=== PATIENT | female | born 1960 ===

== ENCOUNTER 2017-04-28 20:34 | Emergency (ER) | payer MEDICARE, MEDICAID ==
[2017-04-28 20:35] VITALS: BMI 22.3
[2017-04-28 20:45] VITALS: BP 188/119; PULSE 98; TEMP 99.4; O2SAT 99
--- NOTE | 2017-04-28 21:25 | ED PDOC ---
HPI: SOB/CHF/COPD Time Seen by Provider: 04/28/17 20:46 Chief Complaint (Nursing): Shortness Of Breath Chief Complaint (Provider): shortness of breath History Per: Patient History/Exam Limitations: no limitations Onset/Duration Of Symptoms: Days (x2) Current Symptoms Are (Timing): Still Present Additional Complaint(s): Garcia Stevenson is a 56 year old female with a past medical history of Rheumatoid Arthritis and Emphysema presenting to the ED for an evaluation of shortness of breath occurring for 2 days prior to arrival. The patient reports taking Percocet, Naproxen, Xanax, Albuterol inhaler, and a Nebulizer for her symptoms, taken without relief. She also states associated spasms occurring in her right lower extremity, chest tightness, chest pain, and palpitations. She denies cough or congestion. Pt reports she is very anxious bc she takes so many pills and she does not want to be dependant on narcotics anymore. Pt reports that she tried to stop taking her percocet and Oxy's; however, felt worse. Pt contacted her Pain management physician, Dr. Tang who is gong to help her guru off medications; however, Pt feels anxious at this time PMD: David Sepulveda MD Past Medical History Reviewed: Historical Data, Nursing Documentation, Vital Signs Vital Signs: Last Vital Signs Temp 99.4 F 04/28/17 20:39 Pulse 98 H 04/28/17 20:39 Resp 23 04/28/17 22:51 BP 188/119 H 04/28/17 20:39 Pulse Ox 99 04/28/17 21:27 - Medical History PMH: Anxiety, Arthritis (back), Back Problems, Bronchitis, Emphysema, Fractures (RT ANKLE FX W/HARDWARE), Rheumatoid Arthritis Denies: Chronic Kidney Disease - Family History Family History: States: Unknown Family Hx - Social History Current smoker - smoking cessation education provided: No Ex-Smoker (has not smoked in the last 12 months): Yes - Immunization History Hx Tetanus Toxoid Vaccination: No Hx Influenza Vaccination: Yes Hx Pneumococcal Vaccination: Yes - Home Medications Home Medications: Ambulatory Orders Medication Instructions Recorded Oxycodone HCl/Acetaminophen 1 tab PO Q4 12/18/15 [Percocet 325 mg-10 mg] traMADol/Acetaminophen [Ultracet 1 tab PO TID PRN #20 tab 01/27/16 37.5/325 mg] Naproxen [Naprosyn] 500 mg PO Q12H #20 tab 03/10/16 Dicyclomine [Bentyl] 20 mg PO Q6 PRN #12 tab 08/05/16 Famotidine [Pepcid] 20 mg PO BID PRN #15 tab 08/05/16 Ondansetron [Zofran Odt] 4 mg PO Q8 PRN #10 odt 08/05/16 amLODIPine [Norvasc] 5 mg PO DAILY #30 tab 08/05/16 Alprazolam [Xanax] 0.5 mg PO HS #2 tab 04/29/17 - Allergies Allergies/Adverse Reactions: Allergies Allergy/AdvReac Type Severity Reaction Status Date / Time iodine Allergy SHORTNESS Verified 04/28/17 20:39 OF BREATH Iodine and Iodide Containing Allergy SHORTNESS Verified 04/28/17 20:39 Produc OF BREATH Review of Systems ROS Statement: Except As Marked, All Systems Reviewed And Found Negative ENT: Negative for: Nose Congestion Cardiovascular: Positive for: Chest Pain (and chest tightness), Palpitations Respiratory: Positive for: Shortness of Breath. Negative for: Cough Musculoskeletal: Positive for: Leg Pain (spasms in right lower extremity) Physical Exam - Reviewed Nursing Documentation Reviewed: Yes Vital Signs Reviewed: Yes - Physical Exam Appears: Positive for: Non-toxic, No Acute Distress Head Exam: Positive for: ATRAUMATIC, NORMOCEPHALIC Skin: Positive for: Normal Color, Warm, Dry Eye Exam: Positive for: Normal appearance, EOMI ENT: Positive for: Normal ENT Inspection, Pharynx Is (clear), TM Is/Are (normal bilaterally) Neck: Positive for: Normal, Painless ROM Cardiovascular/Chest: Positive for: Regular Rate, Rhythm, Chest Non Tender Respiratory: Positive for: Normal Breath Sounds. Negative for: Respiratory Distress Gastrointestinal/Abdominal: Positive for: Normal Exam, Soft. Negative for: Tenderness Back: Positive for: Normal Inspection Extremity: Positive for: Normal ROM. Negative for: Deformity Neurologic/Psych: Positive for: Alert, Oriented (x3). Negative for: Motor/ Sensory Deficits - Laboratory Results Result Diagrams: 04/28/17 21:15 04/28/17 22:13 - ECG O2 Sat by Pulse Oximetry: 99 (RA) Pulse Ox Interpretation: Normal Medical Decision Making Medical Decision Making: Time: 20:46 Impression: Shortness of breath Plan: * ED EKG * B-Type Natriuretic Peptide * CMP * Troponin I * CBC (with differential) * Erythrocyte Sedimentation Rate * Toradol 30 mg IVP * [RAD] Chest Two Views (PA/LAT) * Reevaluation Repeat BP: 148/88 Scribe Attestation: Documented by Dominga Whitman, acting as a scribe for Azul Leigh PA-C. Provider Scribe Attestation: All medical record entries made by the Scribe were at my direction and personally dictated by me. I have reviewed the chart and agree that the record accurately reflects my personal performance of the history, physical exam, medical decision making, and the department course for this patient. I have also personally directed, reviewed, and agree with the discharge instructions and disposition. Disposition - Clinical Impression Clinical Impression: Anxiety - Patient ED Disposition Is Patient to be Admitted: No - Disposition Disposition: Routine/Home Disposition Time: 22:00 Condition: STABLE Prescriptions: Alprazolam [Xanax] 0.5 mg PO HS #2 tab Instructions: Anxiety (ED) Forms: [employer] (Welsh)
[2017-04-28 21:41] LABS: BASO # 0.2 K/uL (0.0-0.2); BASO % 1.3 % (0.0-2.0); EOS % 0.3 % (0.0-4.0); HEMATOCRIT 43.7 % (34.0-47.0); LYMPH # 1.8 K/uL (1.0-4.3); LYMPH % 14.6 % (20.0-40.0); MEAN CELL VOLUME 91.6 fl (81.0-99.0); MEAN CORPUSCULAR HGB CONC 33.9 g/dL (33.0-37.0); MEAN PLATELET VOLUME 7.8 fl (7.2-11.7); MONO # 0.9 K/uL (0.0-0.8); MONO % 7.1 % (0.0-10.0); NEUT # 9.3 K/uL (1.8-7.0); NEUT % 76.7 % (50.0-75.0); NRBC % 0.1 % (0.0-0.0); RED CELL DISTRIBUTION WIDTH 13.8 % (11.5-14.5); WHITE BLOOD COUNT 12.1 K/uL (4.8-10.8)
[2017-04-28 22:52] VITALS: RESP 23
[2017-04-28 23:44] LABS: ALKALINE PHOSPHATASE 72 U/L (38-126); ALT/SGPT 36 U/L (9-52); AST/SGOT 32 U/L (14-36); BILIRUBIN,TOTAL 0.4 mg/dl (0.2-1.3); BLOOD UREA NITROGEN 11 mg/dl (7-17); CALCIUM 9.9 mg/dL (8.4-10.2); CARBON DIOXIDE 23 mmol/L (22-30); CHLORIDE 106 mmol/L (98-107); GFR AFRICAN-AMERICAN > 60; GLUCOSE,RANDOM 112 mg/dL (65-105); POTASSIUM 3.7 MMOL/L (3.6-5.0); SODIUM 144 mmol/l (132-148); TOTAL PROTEIN 8.4 G/DL (6.3-8.2)
[2017-04-28 23:45] LABS: ALB/GLOB RATIO 1.2 (1.0-2.1)
--- NOTE | 2017-04-29 10:53 | RAD ---
HISTORY: sob COMPARISON: Comparison made with prior chest radiograph dated 09/30/2013. TECHNIQUE: Chest PA and lateral FINDINGS: LUNGS: No focal consolidation. The interstitial markings however are somewhat increased and coarsened in appearance; rule out sequela of reactive/inflammatory airway disease or viral illness. PLEURA: No significant pleural effusion identified. No pneumothorax apparent. CARDIOVASCULAR: Normal. OSSEOUS STRUCTURES: No significant abnormalities. VISUALIZED UPPER ABDOMEN: Normal. OTHER FINDINGS: None. IMPRESSION: No focal consolidation. The interstitial markings however are somewhat increased and coarsened in appearance; rule out sequela of reactive/inflammatory airway disease or viral illness.
--- NOTE | 2017-04-29 21:13 | CARD ---
APPROVED REPORT EKG Measurement Heart [id number] <Conclusion> Normal sinus rhythm Nonspecific ST abnormality Abnormal ECG
== END 2017-04-29 01:16 | disposition home or self-care (01) ==
LOC: H.ER 20:34
DX: F41.9 Anxiety disorder, unspecified (principal); J44.9 Chronic obstructive pulmonary disease, unspecified; M06.9 Rheumatoid arthritis, unspecified
CPT/HCPCS: 71020; 80053; 83880; 84484; 85025; 85651; 93005; 96374; 99283; J1885

== ENCOUNTER 2017-11-20 10:13 | Emergency (ER) | payer MEDICARE, MEDICAID ==
[2017-11-20 10:14] VITALS: BMI 22.3
[2017-11-20 10:31] VITALS: RESP 18; TEMP 98.4
[2017-11-20] MEDS ORDERED: Sodium Chloride 0.9% 1,000 ML IV STA (11:06)
--- NOTE | 2017-11-20 11:19 | RAD ---
HISTORY: cough COMPARISON: Chest radiograph dated 04/28/2017. TECHNIQUE: Chest PA and lateral FINDINGS: LUNGS: No active pulmonary disease. PLEURA: No significant pleural effusion identified. No pneumothorax apparent. CARDIOVASCULAR: Normal. OSSEOUS STRUCTURES: Unchanged. VISUALIZED UPPER ABDOMEN: Normal. OTHER FINDINGS: None. IMPRESSION: No active disease.
[2017-11-20 11:27] LABS: BASO # 0.1 K/uL (0.0-0.2); BASO % 0.8 % (0.0-2.0); EOS % 0.1 % (0.0-4.0); HEMOGLOBIN 15.9 g/dL (12.0-16.0); LYMPH # 1.8 K/uL (1.0-4.3); MEAN CELL VOLUME 91.3 fl (81.0-99.0); MEAN CORPUSCULAR HEMOGLOBIN 31.1 pg (27.0-31.0); MEAN PLATELET VOLUME 8.7 fl (7.2-11.7); MONO # 0.6 K/uL (0.0-0.8); MONO % 4.7 % (0.0-10.0); NEUT # 11.2 K/uL (1.8-7.0); NEUT % 81.4 % (50.0-75.0); NRBC % 0.1 % (0.0-0.0); RBC 5.11 Mil/uL (3.80-5.20); RED CELL DISTRIBUTION WIDTH 14.4 % (11.5-14.5); WHITE BLOOD COUNT 13.8 K/uL (4.8-10.8)
[2017-11-20 11:40] LABS: ALB/GLOB RATIO 1.1 (1.0-2.1); ALBUMIN 4.4 g/dL (3.5-5.0); ALT/SGPT 24 U/L (9-52); AST/SGOT 22 U/L (14-36); BLOOD UREA NITROGEN 12 mg/dl (7-17); CALCIUM 9.8 mg/dL (8.4-10.2); GFR AFRICAN-AMERICAN > 60; GFR NON-AFRICAN AMERICAN > 60; LIPASE 55 U/L (23-300)
--- NOTE | 2017-11-20 11:59 | ED PDOC ---
HPI: Abdomen Time Seen by Provider: 11/20/17 10:15 Chief Complaint (Nursing): Shortness Of Breath Chief Complaint (Provider): Abdominal Pain History Per: Patient History/Exam Limitations: no limitations Onset/Duration Of Symptoms: Days Current Symptoms Are (Timing): Still Present Location Of Pain/Discomfort: Epigastric Associated Symptoms: Vomiting Additional Complaint(s): 57 year old female with a history of emphysema and chronic back pain presents to the ED complaining of epigastric pain onset last night. Reports of associated symptoms of vomiting. Her PMD, Dr. Lr had provided her antibiotics for COPD exacerbation two weeks ago which she has completed. PMD: David Lr I Past Medical History Reviewed: Historical Data, Nursing Documentation, Vital Signs Vital Signs: Last Vital Signs Temp 98.4 F 11/20/17 16:01 Pulse 73 11/20/17 16:01 Resp 18 11/20/17 16:01 BP 143/89 11/20/17 16:01 Pulse Ox 98 11/20/17 16:01 - Medical History PMH: Anxiety, Arthritis (back), Back Problems, Bronchitis, Emphysema, Fractures (RT ANKLE FX W/HARDWARE), Rheumatoid Arthritis Denies: Chronic Kidney Disease - Surgical History Other surgeries: knee surgery - Family History Family History: States: Unknown Family Hx - Social History Current smoker - smoking cessation education provided: Yes (less than 10 cigarettes) Alcohol: None Drugs: Denies - Immunization History Hx Tetanus Toxoid Vaccination: No Hx Influenza Vaccination: Yes Hx Pneumococcal Vaccination: Yes - Home Medications Home Medications: Ambulatory Orders Medication Instructions Recorded Oxycodone HCl/Acetaminophen 1 tab PO Q4 12/18/15 [Percocet 325 mg-10 mg] traMADol/Acetaminophen [Ultracet 1 tab PO TID PRN #20 tab 01/27/16 37.5/325 mg] Naproxen [Naprosyn] 500 mg PO Q12H #20 tab 03/10/16 Dicyclomine [Bentyl] 20 mg PO Q6 PRN #12 tab 08/05/16 Famotidine [Pepcid] 20 mg PO BID PRN #15 tab 08/05/16 Ondansetron [Zofran Odt] 4 mg PO Q8 PRN #10 odt 08/05/16 amLODIPine [Norvasc] 5 mg PO DAILY #30 tab 08/05/16 Alprazolam [Xanax] 0.5 mg PO HS #2 tab 04/29/17 Acetaminophen [Tylenol] 325 mg PO Q6 PRN #30 tab 06/08/17 Ibuprofen [Motrin] 600 mg PO TID #21 tab 06/08/17 Famotidine [Pepcid] 20 mg PO BID PRN #10 tab 11/20/17 - Allergies Allergies/Adverse Reactions: Allergies Allergy/AdvReac Type Severity Reaction Status Date / Time iodine Allergy SHORTNESS Verified 11/20/17 10:28 OF BREATH Iodine and Iodide Containing Allergy SHORTNESS Verified 11/20/17 10:28 Produc OF BREATH Review of Systems ROS Statement: Except As Marked, All Systems Reviewed And Found Negative Gastrointestinal: Positive for: Vomiting, Abdominal Pain (epigastric) Psych: Negative for: Suicidal ideation (homicidal ideation) Physical Exam - Reviewed Nursing Documentation Reviewed: Yes Vital Signs Reviewed: Yes - Physical Exam Appears: Positive for: Well, Non-toxic, No Acute Distress Head Exam: Positive for: ATRAUMATIC, NORMAL INSPECTION, NORMOCEPHALIC Skin: Positive for: Normal Color, Warm, Dry Eye Exam: Positive for: EOMI, Normal appearance, PERRL ENT: Positive for: Normal ENT Inspection Neck: Positive for: Normal, Painless ROM, Supple. Negative for: Decreased ROM Cardiovascular/Chest: Positive for: Regular Rate, Rhythm. Negative for: Murmur Respiratory: Positive for: Rhonchi (slight) Gastrointestinal/Abdominal: Positive for: Soft, Tenderness (mild, epigastric) Back: Positive for: Normal Inspection. Negative for: L CVA Tenderness, R CVA Tenderness Extremity: Positive for: Normal ROM. Negative for: Tenderness, Pedal Edema, Deformity Neurologic/Psych: Positive for: Alert, Oriented (x3). Negative for: Motor/ Sensory Deficits - Laboratory Results Result Diagrams: 11/20/17 10:47 11/20/17 10:47 - ECG O2 Sat by Pulse Oximetry: 99 (RA) Pulse Ox Interpretation: Normal Medical Decision Making Medical Decision Making: Time: 1106 Initial Impression: shortness of breath, vomiting, rule out COPD vs gastroenteritis Initial Plan: --CMP --Lipase --Chest Two Views [RAD] --Normal Saline 200 mls/hr --Zofran 4mg --Reevaluation Time: 1118 HISTORY: cough COMPARISON: Chest radiograph dated 04/28/2017. TECHNIQUE: Chest PA and lateral FINDINGS: LUNGS: No active pulmonary disease. PLEURA: No significant pleural effusion identified. No pneumothorax apparent. CARDIOVASCULAR: Normal. OSSEOUS STRUCTURES: Unchanged. VISUALIZED UPPER ABDOMEN: Normal. OTHER FINDINGS: None. IMPRESSION: No active disease. Time: [address] Lr and states patient becomes anxious sometimes when she goes home Time: 1411 PROCEDURE: CT Abdomen and Pelvis without intravenous contrast HISTORY: abd pain COMPARISON: CT scan of the abdomen pelvis dated 01/29/2014. TECHNIQUE: Contiguous images were obtained from the domes of the diaphragms to the upper thighs without the administration of intravenous contrast. Oral contrast was not administered. Radiation dose: Total exam DLP = 244.1 mGy-cm. This CT exam was performed using one or more of the following dose reduction techniques: Automated exposure control, adjustment of the mA and/or kV according to patient size, and/or use of iterative reconstruction technique. FINDINGS: LOWER THORAX: Lingular atelectasis. LIVER: Unremarkable. No gross lesion or ductal dilatation. GALLBLADDER AND BILE DUCTS: Stable CBD prominence. PANCREAS: Unremarkable. No gross lesion or ductal dilatation. SPLEEN: Unremarkable. ADRENALS: Unremarkable. No mass. KIDNEYS AND URETERS: Unremarkable. No hydronephrosis. No solid mass. VASCULATURE: Calcific atherosclerosis. No aortic aneurysm. BOWEL: Unremarkable. No obstruction. No gross mural thickening. APPENDIX: Unremarkable. Normal appendix. PERITONEUM: Unremarkable. No free fluid. No free air. LYMPH NODES: Unremarkable. No enlarged lymph nodes. BLADDER: Unremarkable. REPRODUCTIVE: Unremarkable. BONES: No acute fracture. Multilevel degenerative changes, worst at L4-5 and L5-S1. OTHER FINDINGS: None. IMPRESSION: No acute abdominal pelvic pathology. Stable additional findings as above. pt reevaluated, resting in bed in NAD Urinalysis presented negative for infection. reviewed labs, discussed wtih Dr lr who states pt can be discharged and follow up as outpt. Patient is ready for discharge. Scribe Attestation: Documented by Samir Flores, acting as a scribe for Nain Cobian MD Provider Scribe Attestation: All medical record entries made by the Scribe were at my direction and personally dictated by me. I have reviewed the chart and agree that the record accurately reflects my personal performance of the history, physical exam, medical decision making, and the department course for this patient. I have also personally directed, reviewed, and agree with the discharge instructions and disposition. Disposition - Clinical Impression Clinical Impression: COPD (chronic obstructive pulmonary disease), Gastritis - Patient ED Disposition Is Patient to be Admitted: No Counseled Patient/Family Regarding: Studies Performed, Diagnosis, Need For Followup - Disposition Referrals: [facility] [Outside] Disposition: Routine/Home Disposition Time: 14:00 Condition: IMPROVED Additional Instructions: follow up with Dr Lr in 2 days for follow up return to the ED with any worsening or concerning symptoms Prescriptions: Famotidine [Pepcid] 20 mg PO BID PRN #10 tab PRN Reason: Heartburn Instructions: COPD Including Emphysema (DC) Forms: [employer] (Lux[place]ish)
--- NOTE | 2017-11-20 14:13 | CT ---
PROCEDURE: CT Abdomen and Pelvis without intravenous contrast HISTORY: abd pain COMPARISON: CT scan of the abdomen pelvis dated 01/29/2014. TECHNIQUE: Contiguous images were obtained from the domes of the diaphragms to the upper thighs without the administration of intravenous contrast. Oral contrast was not administered. Radiation dose: Total exam DLP = 244.1 mGy-cm. This CT exam was performed using one or more of the following dose reduction techniques: Automated exposure control, adjustment of the mA and/or kV according to patient size, and/or use of iterative reconstruction technique. FINDINGS: LOWER THORAX: Lingular atelectasis. LIVER: Unremarkable. No gross lesion or ductal dilatation. GALLBLADDER AND BILE DUCTS: Stable CBD prominence. PANCREAS: Unremarkable. No gross lesion or ductal dilatation. SPLEEN: Unremarkable. ADRENALS: Unremarkable. No mass. KIDNEYS AND URETERS: Unremarkable. No hydronephrosis. No solid mass. VASCULATURE: Calcific atherosclerosis. No aortic aneurysm. BOWEL: Unremarkable. No obstruction. No gross mural thickening. APPENDIX: Unremarkable. Normal appendix. PERITONEUM: Unremarkable. No free fluid. No free air. LYMPH NODES: Unremarkable. No enlarged lymph nodes. BLADDER: Unremarkable. REPRODUCTIVE: Unremarkable. BONES: No acute fracture. Multilevel degenerative changes, worst at L4-5 and L5-S1. OTHER FINDINGS: None. IMPRESSION: No acute abdominal pelvic pathology. Stable additional findings as above.
[2017-11-20 16:02] VITALS: BP 143/89; PULSE 73
[2017-11-21 14:30] VITALS: O2SAT 99
== END 2017-11-20 16:02 | disposition home or self-care (01) ==
LOC: H.ER 10:13
DX: J44.9 Chronic obstructive pulmonary disease, unspecified (principal); M54.9 Dorsalgia, unspecified; F41.9 Anxiety disorder, unspecified; M06.9 Rheumatoid arthritis, unspecified; F17.210 Nicotine dependence, cigarettes, uncomplicated
CPT/HCPCS: 71046; 74176; 80053; 83690; 85025; 96360; 96361; 99283; J2270; J7030